=== PATIENT | female | born 1935 | race Caucasian/White ===

== ENCOUNTER → 2018-12-02 00:38 | Outpatient (CLI) | payer MEDICARE, SELFPAY ==
[2018-12-02 15:16] LABS: CREATININE 0.81 mg/dL (0.55-1.02)
--- NOTE | 2018-12-02 15:37 | DI.CT_ITS ---
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 Note is made of an incompletely imaged, 2 cm. in diameter mass of the upper right lung, this probably lies in the superior segment of the right lower lobe. No gross superior mediastinal adenopathy. No cervical mass or adenopathy. No gross erosion or destruction of the mandible or maxilla. Visualized brain is unremarkable. Orbital structures appear intact. The salivary glands are unremarkable. Tracheal laryngeal structures appear intact. 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 Left internal carotid artery is of normal diameter. Vertebrobasilar circulation appears intact as visualized. CONCLUSION: 1. No gross mandibular mass or invasion or erosive process. 2. Incidental 19 mm. in diameter right lung lesion, incompletely imaged. Chest CT requested to complete evaluation of this lesion and assess for additional lesions. 3. 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
[2018-12-02] MEDS: Omnipaque 350 MG/ML 100 ML BTL IJ (15:50)
[2018-12-02] MEDS: Normal Saline Flush 10 ML SYR IVP (15:51)
== END ==
PROVIDERS: Radiology Diagnostic Ultrasound; PCP Nurse Practitioner; Visit Provider Oral & Maxillofacial Surgery
DX: R91.1 Solitary pulmonary nodule (principal); I65.21 Occlusion and stenosis of right carotid artery; Z85.818 Personal history of malignant neoplasm of other sites of lip, oral cavity, and pharynx; Z13.89 Encounter for screening for other disorder
CPT/HCPCS: 70491; 82565; J3490

== ENCOUNTER 2018-12-25 02:00 | Outpatient (CLI) | payer MEDICARE, SELFPAY ==
--- NOTE | 2018-12-25 13:02 | DI.RAD_ITS ---
SYMPTOM/DIAGNOSIS: RLL PULMONARY NODULE, R91.1 PA AND LATERAL CHEST: Comparison is made with CT scan of the neck of 12/02/18. Comparison CT scan of the chest is 08/03/13. In comparison with the lateral steel rule die maker from 08/03/13, there is again seen a round soft tissue nodule projected in the region of the superior segment of the right lower lobe. It is unchanged in size compared to the steel rule die maker from 08/03/13. The lungs are otherwise clear. Heart size and pulmonary vasculature are within normal limits. No effusions or pneumothoraces are identified. There are degenerative changes seen in the spine. IMPRESSION: Stable right lower lobe pulmonary nodule. Per the report from the CT scan of the chest from 08/03/13, the pulmonary nodule had been stable since 06/28/11. Its continued stability suggests benign lesion. No acute pulmonary process.
== END 2018-12-25 02:20 ==
PROVIDERS: PCP Nurse Practitioner; Visit Provider Nurse Practitioner
DX: R91.1 Solitary pulmonary nodule (principal)
CPT/HCPCS: 71046

== ENCOUNTER 2019-01-15 07:47 | Outpatient (CLI) | payer MEDICARE, SELFPAY ==
[2019-01-15 08:37] LABS: HCT 42.2 % (36.0-46.0); HGB 14.2 g/dL (12.0-15.5); Mean Corp. HGB Concentration 33.6 g/dL (32.0-36.0); Mean Corpuscular Hemoglobin 32.2 pg (27.0-33.0); Mean Corpuscular Volume 95.7 fL (80-95); Platelet Count 243 x1000/uL (130-400); RBC 4.41 m/cumm (4.00-5.20); RBC Distribution Width 13.4 % (11.7-14.6); White Blood Cell Count 5.58 k/cumm (4.4-10.8)
[2019-01-15 09:46] LABS: ALT 21 U/L (12-78); AST 23 U/L (15-37); Albumin 3.8 g/dL (3.4-5.0); Alkaline Phosphatase 86 U/L (46-116); Anion Gap 7.5 mmol/L (3-11); BUN 18 mg/dL (7-18); Bilirubin, Total 0.4 mg/dL (0.2-1.0); CO2 32.5 mmol/L (21.0-32.0); CREATININE 0.76 mg/dL (0.55-1.02); Calcium 9.4 mg/dL (8.5-10.1); Calculated LDL 88 mg/dL; Chloride 104 mmol/L (98-107); Cholesterol 168 mg/dL (50-200); Glucose 106 mg/dL (70-100); HDL Cholesterol 40 mg/dL (40-60); Potassium 4.3 mmol/L (3.5-5.1); Sodium 144 mmol/L (136-145); Total Protein 7.1 g/dL (6.4-8.2); Triglyceride 203 mg/dL (30-150)
== END 2019-01-15 08:07 ==
PROVIDERS: PCP Nurse Practitioner; Visit Provider Nurse Practitioner
DX: E78.5 Hyperlipidemia, unspecified (principal); I10 Essential (primary) hypertension
CPT/HCPCS: 36415; 80053; 80061; 83721; 85027

== ENCOUNTER 2019-05-05 12:00 | Outpatient (REF) | payer MEDICARE, SELFPAY | END 2019-05-05 12:20 | LOC: LBO 12:00 | PROVIDERS: PCP Nurse Practitioner; Visit Provider Nurse Practitioner | DX: R35.0 Frequency of micturition (principal); R10.9 Unspecified abdominal pain | CPT/HCPCS: 87086 ==

== ENCOUNTER 2019-06-26 12:13 | Emergency (ER) | payer MEDICARE, SELFPAY ==
[2019-06-26 12:19] VITALS: BP 169/57; PULSE 78; RESP 14; TEMP 36.2; O2SAT 100
--- NOTE | 2019-06-26 12:56 | W.ED.GENAD ---
Discharge Plan Disposition Patient Disposition: HOME Condition: Good Discharge Details Chief Complaint: Orthopedic Clinical Impression: Acute knee pain Primary Care Provider: Ilene Torres ED Provider: Maria Antonia Smith Home Meds and New Rx's Prescriptions: Discontinued ibuprofen 200 mg Tablet 400 mg PO Q6H PRNRF: 0 No Action aspirin [Aspirin Low-Strength] 81 MG tablet,chewable 81 mg PO DAILY Qty: 90 RF: 4 omeprazole 20 MG capsule,delayed release(DR/EC) 20 mg PO DAILY Qty: 90 RF: 3 pravastatin 20 mg tablet 20 mg PO DAILY Qty: 90 RF: 3 hydrochlorothiazide 12.5 mg capsule 12.5 mg PO DAILY Qty: 90 RF: 3 Discharge Instructions Instructions: Knee Pain (ED) Additional Instructions: Rest. Activities as tolerated. Elevate injury to prevent swelling. Ice to the area of discomfort for 15 min. 3-5 times daily. Tylenol every 6 hours for soreness if needed over the counter for comfort. Followup with orthopedic doctor as discussed if not improving in one week. Someone from radiology should call you to schedule your Ultrasound. Return to the ER fridayfor Ultrasound as discussed. Return for any worsening or concerns sooner if needed. Referrals: Hector Hudson MD [ [facility] STAFF PHYSICIAN] - Medical Decision Making This is a very pleasant 83-year-old patient who presents to the emergency room for right knee pain for the last 3 days. Patient denies any specific injury or trauma. Patient reports knee pain is somewhat improved compared to yesterday after taking ibuprofen however now experiencing calf tightness. Patient reports a history of knee effusion for which she has seen Dr. Hudson in the past of orthopedics who removed fluid from her right knee. On exam patient has mild knee effusion without associated signs of infection. Patient does have range of motion which is intact with associated knee pain with flexion. On examination of patient's knee she has primarily lateral joint line tenderness and experiences pain more significantly in the lateral aspect of the joint with valgus and varus stress. Patient does have notable right calf swelling compared to the left leg. Distal neurovascularly intact. Pulses are intact and sensation is intact. X-ray ordered of knee as well as ultrasound. Ultrasound is unavailable today. X-ray reveals [id number] degenerative changes in the lateral aspect of the joint compartment. Patient has no associated fracture today. Discussed ultrasound being unavailable at this time. Ordered outpatient imaging for Friday. Patient was offered anticoagulation medication for potential for DVT however at this time patient's preference is to decline prophylactic anticoagulation and use aspirin by mouth and have outpatient imaging. Alarming signs and symptoms were discussed. Although DVT is within the differential diagnosis given patient's arthritic findings and her exam it is possible that she has ruptured a Mckenna's cyst and the calf pain and fullness she is experiencing is related to ruptured cystic fluid. No sign of infection or compartment syndrome in the calf at this time. The patient was stable and requested discharge. Prior to discharge, my usual and customary return precautions were reviewed with the patient - this included follow-up instructions and reasons to return to the Emergency Department if conditions worsens, does not improve as expected, or other new concerns arise. HPI General Date/Time Provider Initiated Documentation: 06/26/19 12:42. HPI Narrative: Is an 83-year-old patient who is quite pleasant presenting for complaints of right knee pain for the last 3 days. Patient reports she does have a history of knee pain in the past for which she seen Dr. Hudson and had fluid removed from her knee. Patient denies any recent injury or trauma to her knee but reports in the last 3 days increase in knee pain with associated limping gait. Patient reports pain yesterday was so severe she was having difficulty ambulating was using crutches. Patient reports the pain is somewhat improved today however she reports increasing pain and pressure in the right calf. Patient denies fever, chills, nausea, vomiting. No numbness or tingling of the lower leg. No difficulty breathing shortness of breath or wheezing. No ill feeling or malaise. Related Data Home Medications Medication Instructions Recorded Confirmed aspirin [Aspirin Low-Strength] 81 mg PO DAILY #90 tab.chew 11/04/12 06/26/19 omeprazole 20 mg PO DAILY #90 tab-cap 01/22/18 06/26/19 pravastatin 20 mg tablet 20 mg PO DAILY #90 tab-cap 11/25/18 06/26/19 hydrochlorothiazide 12.5 mg capsule 12.5 mg PO DAILY #90 tab-cap 02/02/19 06/26/19 Previous Rx's Medication Instructions Recorded omeprazole 20 mg PO DAILY #90 tab-cap 01/22/18 pravastatin 20 mg tablet 20 mg PO DAILY #90 tab-cap 11/25/18 hydrochlorothiazide 12.5 mg capsule 12.5 mg PO DAILY #90 tab-cap 02/02/19 Allergies Allergy/AdvReac Type Severity Reaction Status Date / Time scopolamine AdvReac Intermediate Visual Verified 06/26/19 12:22 Disturbances General Stated Complaint: Orthopedic DION: 4 Review of Systems All systems reviewed & are unremarkable except as noted in HPI and below Constitutional Constitutional: Denies chills, Denies fatigue, Denies fever(s), Denies headache(s) and Denies malaise ENT Ears, Nose, Mouth, and Throat: Denies headache(s) Musculoskeletal Musculoskeletal: Reports abnormal gait, Denies back pain, Reports joint swelling, Denies numbness, Reports stiffness and Denies tingling Neurologic Neurologic: Reports abnormal gait, Denies headache(s), Denies numbness and Denies tingling Endocrine Endocrine: Denies fatigue [facility] Surgical History (Updated 02/19/19 @ 14:09 by Sarah Garcia RN) Extraction of cataract (03/19/16) Right eye Dr. Carlton Diaz eye Extraction of cataract (04/09/16) Right eye Dr. Carlton Diaz eye H/O oral surgery (Acute 01/27/19) Mandibulectomy, Partial composit resection, glossectomy Social History Smoking/Tobacco Use Status: Former Tobacco Use Alcohol Intake: never Drug use: Never Substance use type: does not use Do you feel safe at home: Yes Do you feel safe in your relationship?: Yes Exam Narrative Exam Narrative: CONST: Healthy appearing patient, in no acute distress. Well hydrated. Alert and alert. etractions. MUSCULOSKELETAL: Straight leg raise intact. Internal/external rotation of the hip without difficulty. Patient is able to flex and extend knee with pain with flexion. Patient reports lateral joint line tenderness. Mild effusion present. Posterior swelling present consistent with Mckenna's cyst. Right calf fullness compared to the left leg. Calf pressure with palpation but no significant pain with calf squeeze or flexion of the foot. Pulses present in the foot. Full range of motion of foot and ankle. Sensation intact distally. SKIN: Normal. Dry. No rashes. NEURO: Alert and awake. Speech clear. PSYCH: Normal affect. Cooperative. Course Vital Signs Vital signs: Vital Signs Temperature 36.2 C L 06/26/19 12:19 Pulse 78 06/26/19 12:19 Respiratory Rate 14 06/26/19 12:19 Blood Pressure 169/57 H 06/26/19 12:19 Pulse Oximetry 100 06/26/19 12:19 Temperature 36.2 C L 06/26/19 12:19 Temperature Source Temporal Artery Scan 06/26/19 12:19 Pulse 78 06/26/19 12:19 Respiratory Rate 14 06/26/19 12:19 Respiratory Effort Non-Labored 06/26/19 12:21 Blood Pressure 169/57 H 06/26/19 12:19 Blood Pressure Position Sitting 06/26/19 12:19 Pulse Oximetry 100 06/26/19 12:19 Oxygen Delivery Method Room Air 06/26/19 12:19 Oxygen Flow Rate 0 06/26/19 12:19 Pain Level 8 06/26/19 12:19
--- NOTE | 2019-06-26 13:10 | DI.RAD_ITS ---
EXAM: XR KNEE RT 4V AP,LAT,MARTA,PAT INDICATION: pain. COMPARISON: LEFT KNEE LIMITED 1 OR 2 VIEWS from 01/12/2014 TECHNIQUE: 2D digital imaging was performed. FINDINGS: No fracture is identified. There is a small joint effusion. There are advanced degenerative changes of the lateral femoral tibial joint and [id number] degenerative changes elsewhere. IMPRESSION: No acute abnormality. 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
--- NOTE | 2019-06-26 13:50 | DI.VRAD_ITS ---
PROCEDURE INFORMATION: Exam: XR Left Knee Exam date and time: 06/26/2019 12:54 PM Age: 83 years old Clinical history: Pain; Knee; Right TECHNIQUE: Imaging protocol: XR Left knee. Views: 4 or more views. COMPARISON: No relevant prior studies available. FINDINGS: Bones/joints: Godo-ye-rtrf in the lateral compartment Joint space narrowing in the patellofemoral joint. Osteophyte formation in the lateral compartment and patellofemoral compartment. Findings consistent degenerative changes. There is no evidence of acute fracture.There is no evidence of malalignment or dislocation. Soft tissues: Normal. IMPRESSION: There is no evidence of acute fracture.There is no evidence of malalignment or dislocation. Dictated and Authenticated by: Agnieszka Ritchie MD. Ordering:JACKIE Em MD
== END 2019-06-26 14:30 | disposition home or self-care (01) ==
PROVIDERS: Emergency Provider Physician Assistant; PCP Nurse Practitioner
DX: M25.561 Pain in right knee (principal)
CPT/HCPCS: 99283; 73564

== ENCOUNTER 2019-06-28 12:00 | Outpatient (CLI) | payer MEDICARE, SELFPAY ==
--- NOTE | 2019-06-28 12:17 | DI.US_ITS ---
EXAM: US LOWER EXTREMITY VENOUS RT CLINICAL HISTORY: KNEE AND CALF PAIN AND SWELLING ON RT, R22.41, ? DVT TECHNIQUE: Ultrasound performed using standard protocol. COMPARISON: XR KNEE RT 4V AP,LAT,MARTA,PAT from 06/26/2019 FINDINGS: Femoral and popliteal veins and visualized calf veins are freely compressible. No thrombus is visibl e. The Doppler venous waveform augments normally. There is some soft tissue fluid seen at the later al aspect of the level of the knee. No superficial venous thrombosis is seen. There is a reactive r ight groin lymph node without suspicious features. IMPRESSION: No evidence of deep venous thrombosis or superficial thrombophlebitis.
== END 2019-06-28 12:20 ==
PROVIDERS: PCP Nurse Practitioner; Visit Provider Physician Assistant
DX: M25.561 Pain in right knee (principal); M79.661 Pain in right lower leg; R22.41 Localized swelling, mass and lump, right lower limb
CPT/HCPCS: 93971

== ENCOUNTER 2019-06-28 12:57 | Emergency (ER) | payer MEDICARE, SELFPAY ==
[2019-06-28 13:05] VITALS: BP 180/71; PULSE 71; RESP 16; TEMP 36.5; O2SAT 99
--- NOTE | 2019-06-28 15:02 | ED.GENADUL_ITS ---
Discharge Plan Disposition Patient Disposition: HOME Condition: Stable Discharge Details Chief Complaint: Recheck Clinical Impression: Acute leg pain Primary Care Provider: Ilene Torres ED Provider: Ivan Arreaga Home Meds and New Rx's Prescriptions: No Action aspirin [Aspirin Low-Strength] 81 MG tablet,chewable 81 mg PO DAILY Qty: 90 RF: 4 omeprazole 20 MG capsule,delayed release(DR/EC) 20 mg PO DAILY Qty: 90 RF: 3 pravastatin 20 mg tablet 20 mg PO DAILY Qty: 90 RF: 3 hydrochlorothiazide 12.5 mg capsule 12.5 mg PO DAILY Qty: 90 RF: 3 Discharge Instructions Instructions: Leg Pain (ED) Additional Instructions: 1. Drink plenty of fluids. 2. Continue all medications as prescribed. 3. Acetaminophen 1000mg every 4 hours (up to 5 time a day) and/or ibuprofen 600mg every 6 hours as needed for fever or pain. 4. Ice knee as needed. Return to the Emergency Department (ED) if your condition worsens, does not improve as expected, or for ANY other concerns. Specifically, return if you have new or uncontrolled pain, worsening fever, difficulty breathing, vomiting, or are unable to drink fluids. Medical Decision Making 83-year-old returns for review of imaging performed 2 days ago for right knee pain and associated knee swelling. Clinically improved since her previous evaluation with decreased knee swelling and pain. Exam today negative for evidence of significant leg swelling, erythema, induration, or vascular compromise. She has no significant popliteal fossa or medial thigh tenderness. DVT study reviewed by myself and radiology and negative for evidence of acute DVT. Discussed findings with patient was discharged home with a plan for OTC analgesia and outpatient follow-up. Of note, patient has had similar knee pain previously which has been treated with arthrocentesis for a joint effusion. Imaging Data Radiologic Study: Imaging: Ultrasound (Right lower extremity DVT study) My impression: No evidence of acute thrombus. Radiologist's impression: Same HPI 83-year-old woman with past medical history which includes 06/26/2019 for acute onset of right knee pain and swelling. Evaluation included knee x-ray diagnostic for likely degenerative disease. At that time, an outpatient DVT duplex study was ordered. Patient returns today for formal image review and disposition dependent on findings. Of note, she has been clinically improved since her ED evaluation with reduced knee swelling and pain responsive to OTC analgesia. She denies significant generalized lower extremity swelling or pain. She has had no leg discoloration or exanthem. She denies any dyspnea, palpitations, or chest pain. General Date/Time Provider Initiated Documentation: 06/28/19 14:05 . Related Data Home Medications Medication Instructions Recorded Confirmed aspirin [Aspirin Low-Strength] 81 mg PO DAILY #90 tab.chew 11/04/12 06/28/19 omeprazole 20 mg PO DAILY #90 tab-cap 01/22/18 06/28/19 pravastatin 20 mg tablet 20 mg PO DAILY #90 tab-cap 11/25/18 06/28/19 hydrochlorothiazide 12.5 mg capsule 12.5 mg PO DAILY #90 tab-cap 02/02/19 06/28/19 Previous Rx's Medication Instructions Recorded omeprazole 20 mg PO DAILY #90 tab-cap 01/22/18 pravastatin 20 mg tablet 20 mg PO DAILY #90 tab-cap 11/25/18 hydrochlorothiazide 12.5 mg capsule 12.5 mg PO DAILY #90 tab-cap 02/02/19 Allergies Allergy/AdvReac Type Severity Reaction Status Date / Time scopolamine AdvReac Intermediate Visual Verified 06/28/19 13:07 Disturbances General Stated Complaint: Recheck DION: 5 Review of Systems All systems reviewed & are unremarkable except as noted in HPI and below PFSH Surgical History Extraction of cataract (03/19/16) Right eye Dr. Carlton Diaz eye Extraction of cataract (04/09/16) Right eye Dr. Carlton Diaz eye H/O oral surgery (Acute 01/27/19) Mandibulectomy, Partial composit resection, glossectomy Social History Smoking/Tobacco Use Status: Former Tobacco Use Alcohol Intake: never Drug use: Never Substance use type: does not use Do you feel safe at home: Yes Do you feel safe in your relationship?: Yes Exam Narrative Exam Narrative: Nursing note and vital signs have been reviewed and noted. GENERAL: alert, active, no acute distress, well -hydrated, well-nourished HEENT: atraumatic/normocephalic, PERRLA, EOMI, conjunctiva clear, external ears/canals normal, nasal mucosa normal NECK: supple, full range of motion CARDIOVASCULAR: nl pulses, no edema PULMONARY: nl effort, no audible wheezing or stridor ABDOMEN: non-distended EXTREMITY: normal muscle tone, all joints with FROM, no deformity; minimal right knee joint effusion with no erythema, induration, or ecchymosis. No calf tenderness or proximal leg tenderness in the distribution of the common femoral femoral vein. Normal peripheral neurovascular exam. NUERO: normal mentation, moving all extremities, normal stance and gait, PSYCH: alert and oriented SKIN: no new rashes or lesions Course Vital Signs Vital signs: Vital Signs Temperature 97.7 F 06/28/19 13:05 Pulse 71 06/28/19 13:05 Respiratory Rate 16 06/28/19 13:05 Blood Pressure 180/71 H 06/28/19 13:05 Pulse Oximetry 99 06/28/19 13:05 Temperature 97.7 F 06/28/19 13:05 Temperature Source Skin 06/28/19 13:05 Pulse 71 06/28/19 13:05 Respiratory Rate 16 06/28/19 13:05 Respiratory Effort Non-Labored 06/28/19 13:05 Blood Pressure 180/71 H 06/28/19 13:05 Blood Pressure Position Sitting 06/28/19 13:05 Pulse Oximetry 99 06/28/19 13:05 Oxygen Delivery Method Room Air 06/28/19 13:05 Oxygen Flow Rate 0 06/28/19 13:05 Pain Level 0 06/28/19 14:14
== END 2019-06-28 14:15 | disposition home or self-care (01) ==
PROVIDERS: Emergency Provider Emergency Medicine; PCP Nurse Practitioner
DX: M79.604 Pain in right leg (principal); Z71.2 Person consulting for explanation of examination or test findings
CPT/HCPCS: 99282; 93971

== ENCOUNTER → 2019-07-30 09:26 | Outpatient (BNVA) | payer MEDICARE, SELFPAY | PROVIDERS: PCP Nurse Practitioner; Referring Provider Nurse Practitioner; Visit Provider Student in an Organized Health Care Education/Training Program | DX: M25.561 Pain in right knee (principal) | CPT/HCPCS: 99213 ==

== ENCOUNTER 2020-06-07 10:28 | Outpatient (REF) | payer MEDICARE, SELFPAY ==
[2020-06-07 19:39] LABS: HCT 44.8 % (36.0-46.0); MCH 31.6 pg (27.0-33.0); MCHC 33.5 % (32.0-36.0); MCV 94.5 fL (80-95); MPV 9.4 fL (8.0-11.0); Platelet Count 226 10^3/uL (130-400); RBC 4.74 10^6/uL (3.93-5.22); RDW-SD 45.6 fL; WBC 6.06 10^3/uL (4.4-10.8)
[2020-06-07 20:03] LABS: ALT 20 U/L (14-59); AST 18 U/L (15-37); Albumin 4.1 g/dL (3.4-5.0); Alkaline Phosphatase 79 U/L (46-116); Anion Gap 9.1 mmol/L (3-11); BUN 17 mg/dL (7-18); Bilirubin, Total 0.5 mg/dL (0.2-1.0); CO2 29.9 mmol/L (21.0-32.0); CREATININE 0.81 mg/dL (0.55-1.02); Calcium 9.2 mg/dL (8.5-10.1); Calculated LDL 96 mg/dL (<100); Chloride 103 mmol/L (98-107); Cholesterol 168 mg/dL (<200); Glucose 108 mg/dL (74-106); HDL Cholesterol 52 mg/dL (40-60); Potassium 4.4 mmol/L (3.5-5.1); Sodium 142 mmol/L (136-145); Total Protein 7.1 g/dL (6.4-8.2); Triglyceride 104 mg/dL (<150)
== END 2020-06-07 10:48 ==
LOC: LBN 10:28
PROVIDERS: PCP Nurse Practitioner; Visit Provider Nurse Practitioner
DX: I63.9 Cerebral infarction, unspecified (principal); I10 Essential (primary) hypertension; E78.5 Hyperlipidemia, unspecified
CPT/HCPCS: 80053; 80061; 85027

== ENCOUNTER 2020-07-03 10:30 | Outpatient (REF) | payer MEDICARE, SELFPAY | END 2020-07-03 10:50 | LOC: LBN 10:30 | PROVIDERS: PCP Nurse Practitioner; Visit Provider Nurse Practitioner | DX: R10.9 Unspecified abdominal pain (principal); R82.998 Other abnormal findings in urine | CPT/HCPCS: 87086 ==

== ENCOUNTER 2021-05-16 04:36 | Outpatient (CLI) | payer MEDICARE, SELFPAY ==
[2021-05-16 09:18] LABS: Hemoglobin A1C 5.7 % (<5.7)
[2021-05-16 09:54] LABS: ALT 20 U/L (14-59); AST 16 U/L (15-37); Albumin 3.7 g/dL (3.4-5.0); Alkaline Phosphatase 85 U/L (46-116); Anion Gap 6.2 mmol/L (3-11); BUN 16 mg/dL (7-18); Bilirubin, Total 0.8 mg/dL (0.2-1.0); CO2 33.8 mmol/L (21.0-32.0); CREATININE 0.8 mg/dL (0.55-1.02); Calcium 8.8 mg/dL (8.5-10.1); Calculated LDL 99 mg/dL (<100); Chloride 106 mmol/L (98-107); Cholesterol 167 mg/dL (<200); Glucose 105 mg/dL (74-106); HDL Cholesterol 53 mg/dL (40-60); Potassium 4.6 mmol/L (3.5-5.1); Sodium 146 mmol/L (136-145); Total Protein 6.7 g/dL (6.4-8.2); Triglyceride 76 mg/dL (<150)
== END 2021-05-16 04:37 | disposition home or self-care (01) ==
LOC: LBO 04:36
PROVIDERS: PCP Nurse Practitioner; Visit Provider Nurse Practitioner
DX: I10 Essential (primary) hypertension (principal); E78.5 Hyperlipidemia, unspecified; R73.01 Impaired fasting glucose
CPT/HCPCS: 36415; 80053; 80061; 83036

== ENCOUNTER 2021-07-11 09:33 | Outpatient (REF) | payer MEDICARE, SELFPAY | END 2021-07-11 09:34 | disposition home or self-care (01) | LOC: LBN 09:33 | PROVIDERS: PCP Nurse Practitioner; Visit Provider Nurse Practitioner | DX: M54.9 Dorsalgia, unspecified (principal) | CPT/HCPCS: 87086 ==

== ENCOUNTER 2021-10-01 08:59 | Outpatient (REF) | payer MEDICARE, SELFPAY | END 2021-10-01 09:00 | disposition home or self-care (01) | LOC: LBN 08:59 | PROVIDERS: PCP Nurse Practitioner; Visit Provider Nurse Practitioner | DX: R30.0 Dysuria (principal) | CPT/HCPCS: 87086 ==

== ENCOUNTER 2022-04-29 11:10 | Outpatient (CLI) | payer MEDICARE, SELFPAY ==
--- NOTE | 2022-04-29 11:00 | DI.RAD_ITS ---
Exam(s) XR LUMBAR SPINE COMPLETE EXAM: XR LUMBAR SPINE COMPLETE CLINICAL HISTORY: SCIATICA, LOW BACK PAIN-M54.50. TECHNIQUE: 2D digital imaging was performed. Five views. COMPARISON: No exams were available for comparison FINDINGS: BONES: No fracture or destructive lesion. Vertebral body heights are maintained. Severe facet hypert rophy, greatest at L4-5 and L5-S1.. There is slight spondylolisthesis at these levels. No spondylol ysis. DISKS: Moderate to severe narrowing of the L5-S1 disc space. The remaining intervertebral disc space s are maintained. ALIGNMENT: Lumbar spinal alignment is within normal limits. SOFT TISSUE: Vascular calcifications. IMPRESSION: Severe facet joint degenerative changes greatest at L4-5 and L5-S1 causing slight spondylo listhesis. Moderate to severe disc space narrowing at L5-S1. DATA REPOSITORY: RADIATION DOSE DELIVERED:
== END 2022-04-29 11:30 ==
LOC: DI 11:17
PROVIDERS: PCP Nurse Practitioner; Visit Provider Nurse Practitioner
DX: M54.59 Other low back pain (principal); M51.17 Intervertebral disc disorders with radiculopathy, lumbosacral region; M43.17 Spondylolisthesis, lumbosacral region
CPT/HCPCS: 72110

== ENCOUNTER 2022-04-29 11:43 | Outpatient (REF) | payer MEDICARE, SELFPAY | END 2022-04-29 11:44 | disposition home or self-care (01) | LOC: LBN 11:43 | PROVIDERS: PCP Nurse Practitioner; Visit Provider Nurse Practitioner | DX: R10.31 Right lower quadrant pain (principal); M54.59 Other low back pain | CPT/HCPCS: 87086 ==

== ENCOUNTER 2022-05-21 08:04 | Outpatient (CLI) | payer MEDICARE, SELFPAY ==
[2022-05-21 08:30] LABS: HGB 14.4 g/dL (11.2-15.7); MCH 32.7 pg (27.0-33.0); MCHC 33.5 % (32.0-36.0); MCV 98 fL (80-95); MPV 8.8 fL (8.0-11.0); Platelet Count 223 10^3/uL (130-400); RDW 14.3 % (11.7-14.6); RDW-SD 51.8 fL; WBC 5.62 10^3/uL (4.4-10.8)
[2022-05-21 08:40] LABS: Hemoglobin A1C 5.5 % (<5.7)
[2022-05-21 08:54] LABS: ALT 17 U/L (14-59); AST 19 U/L (15-37); Alkaline Phosphatase 88 U/L (46-116); Anion Gap 5.3 mmol/L (3-11); BUN 18 mg/dL (7-18); Bilirubin, Total 1.1 mg/dL (0.2-1.0); CO2 32.7 mmol/L (21.0-32.0); CREATININE 0.8 mg/dL (0.55-1.02); Calcium 9.2 mg/dL (8.5-10.1); Calculated LDL 87 mg/dL (<100); Chloride 104 mmol/L (98-107); Cholesterol 169 mg/dL (<200); Estimated GFR 72.61 (mL/min/1.73m2); Glucose 97 mg/dL (74-106); HDL Cholesterol 55 mg/dL (40-60); Potassium 3.9 mmol/L (3.5-5.1); Sodium 142 mmol/L (136-145); Total Protein 7.6 g/dL (6.4-8.2); Triglyceride 137 mg/dL (<150)
== END 2022-05-21 08:05 | disposition home or self-care (01) ==
LOC: LBO 08:05
PROVIDERS: PCP Nurse Practitioner; Visit Provider Nurse Practitioner
DX: E78.5 Hyperlipidemia, unspecified (principal); I10 Essential (primary) hypertension; K21.00 Gastro-esophageal reflux disease with esophagitis, without bleeding; R73.01 Impaired fasting glucose; C02.9 Malignant neoplasm of tongue, unspecified
CPT/HCPCS: 36415; 80053; 80061; 85027; 83036

== ENCOUNTER 2022-08-20 10:57 | Outpatient (CLI) | payer MEDICARE, SELFPAY ==
--- NOTE | 2022-08-20 10:45 | RT.EKG_ITS ---
APPROVED REPORT Exam: Resting ECG Reason for Exam: prior to surgery Patient Location: O HR:75 bpm ECG Measurements Heart Rate 75 AXIS NJ 190 P 45 QRSd 84 QRS 0 QT 390 T 34 QTc 436 Conclusion Sinus rhythm...normal P axis, V-rate 50- 99 Normal Electrocardiogram
== END 2022-08-20 10:58 | disposition home or self-care (01) ==
LOC: DI.KIM 10:58
PROVIDERS: PCP Nurse Practitioner; Visit Provider Nurse Practitioner
DX: I10 Essential (primary) hypertension (principal); E78.5 Hyperlipidemia, unspecified; Z01.818 Encounter for other preprocedural examination
CPT/HCPCS: 93010

== ENCOUNTER 2023-07-01 10:41 | Outpatient (REF) | payer MEDICARE, SELFPAY ==
[2023-07-01 16:16] LABS: HCT 34.2 % (36.0-46.0); HGB 11.9 g/dL (11.2-15.7); MCH 34.5 pg (27.0-33.0); MCHC 34.8 % (32.0-36.0); MCV 99 fL (80-95); MPV 9.8 fL (8.0-11.0); RBC 3.45 10^6/uL (3.93-5.22); RDW 14.4 % (11.7-14.6); RDW-SD 51.6 fL; WBC 2.12 10^3/uL (4.4-10.8)
[2023-07-01 16:28] LABS: ALT 15 U/L (14-59); AST 16 U/L (15-37); Albumin 3.4 g/dL (3.4-5.0); Alkaline Phosphatase 56 U/L (46-116); Anion Gap 6.4 mmol/L (3-11); BUN 15 mg/dL (7-18); Bilirubin, Total 0.5 mg/dL (0.2-1.0); CO2 32.6 mmol/L (21.0-32.0); CREATININE 0.8 mg/dL (0.55-1.02); Calcium 9.5 mg/dL (8.5-10.1); Chloride 100 mmol/L (98-107); Estimated GFR 72.16 (mL/min/1.73m2); Glucose 131 mg/dL (74-106); Potassium 3.1 mmol/L (3.5-5.1); Sodium 139 mmol/L (136-145); Total Protein 6.9 g/dL (6.4-8.2)
[2023-07-01 16:31] LABS: Platelet Count 88 10^3/uL (130-400)
[2023-07-01 16:34] LABS: Absolute Eosinophil Count 0.04 10^3/uL (0.0-0.7); Absolute Lymphocyte Count 0.51 10^3/uL (1.2-3.4); Absolute Monocyte Count 0.19 10^3/uL (0.1-0.8); Absolute Neutrophil Count 1.38 10^3/uL (1.2-6.7); Diff Comment Diff Reviewed; RBC Morphology Normal
== END 2023-07-01 10:42 | disposition home or self-care (01) ==
LOC: LBN 10:41
PROVIDERS: PCP Nurse Practitioner; Visit Provider Nurse Practitioner
DX: R63.4 Abnormal weight loss (principal); C10.9 Malignant neoplasm of oropharynx, unspecified; I10 Essential (primary) hypertension
CPT/HCPCS: 80053; 85025

== ENCOUNTER 2023-07-08 13:59 | Outpatient (REF) | payer MEDICARE, SELFPAY ==
[2023-07-08 16:16] LABS: Absolute Basophil Count 0.01 10^3/uL (0.0-0.2); Absolute Eosinophil Count 0.02 10^3/uL (0.0-0.7); Absolute Lymphocyte Count 0.43 10^3/uL (1.2-3.4); Absolute Monocyte Count 0.11 10^3/uL (0.1-0.8); Absolute Neutrophil Count 1.02 10^3/uL (1.2-6.7); Basophils % 0.6; Eosinophils % 1.3; HCT 42.4 % (36.0-46.0); HGB 14.3 g/dL (11.2-15.7); MCHC 33.7 % (32.0-36.0); MCV 101 fL (80-95); MPV 9.5 fL (8.0-11.0); Monocytes % 6.9; Neutrophils % 64.2; RDW 15.3 % (11.7-14.6); RDW-SD 56.3 fL
[2023-07-08 16:28] LABS: Anion Gap 8.2 mmol/L (3-11); BUN 13 mg/dL (7-18); CO2 27.8 mmol/L (21.0-32.0); CREATININE 0.6 mg/dL (0.55-1.02); Calcium 9.3 mg/dL (8.5-10.1); Chloride 104 mmol/L (98-107); Estimated GFR 87.91 (mL/min/1.73m2); Glucose 122 mg/dL (74-106); Potassium 4.7 mmol/L (3.5-5.1); Sodium 140 mmol/L (136-145)
[2023-07-08 16:35] LABS: WBC 1.59 10^3/uL (4.4-10.8)
[2023-07-08 16:36] LABS: Platelet Count 62 10^3/uL (130-400)
[2023-07-08 16:39] LABS: RBC Morphology Normal
[2023-07-08 16:40] LABS: Diff Comment Agrees w/ Instrument
== END 2023-07-08 14:00 | disposition home or self-care (01) ==
LOC: LBN 13:59
PROVIDERS: PCP Nurse Practitioner; Visit Provider Nurse Practitioner
DX: D61.818 Other pancytopenia (principal); R79.89 Other specified abnormal findings of blood chemistry
CPT/HCPCS: 80048; 85025

== ENCOUNTER 2023-07-16 11:42 | Outpatient (REF) | payer MEDICARE, SELFPAY ==
[2023-07-16 15:27] LABS: HCT 32.1 % (36.0-46.0); HGB 10.9 g/dL (11.2-15.7); MCH 34.7 pg (27.0-33.0); MCV 102 fL (80-95); MPV 9.4 fL (8.0-11.0); RBC 3.14 10^6/uL (3.93-5.22); RDW 15.1 % (11.7-14.6); RDW-SD 56.3 fL
[2023-07-16 15:37] LABS: WBC 1.57 10^3/uL (4.4-10.8)
[2023-07-16 15:38] LABS: Platelet Count 80 10^3/uL (130-400)
[2023-07-16 15:48] LABS: Absolute Eosinophil Count 0.02 10^3/uL (0.0-0.7); Absolute Lymphocyte Count 0.46 10^3/uL (1.2-3.4); Absolute Monocyte Count 0.16 10^3/uL (0.1-0.8); Absolute Neutrophil Count 0.94 10^3/uL (1.2-6.7); Atypical Lymphocytes % 2
[2023-07-16 15:50] LABS: Diff Comment Diff Reviewed; Hypochromasia 1+
== END 2023-07-16 11:43 | disposition home or self-care (01) ==
LOC: LBN 11:42
PROVIDERS: PCP Nurse Practitioner; Referring Provider Nurse Practitioner; Visit Provider Nurse Practitioner
DX: D72.819 Decreased white blood cell count, unspecified (principal)
CPT/HCPCS: 85025

== ENCOUNTER 2023-07-23 18:56 | Outpatient (CLI) | payer MEDICARE, SELFPAY ==
[2023-07-23 10:07] LABS: Absolute Eosinophil Count 0.04 10^3/uL (0.0-0.7); Absolute Monocyte Count 0.23 10^3/uL (0.1-0.8); Absolute Neutrophil Count 1.21 10^3/uL (1.2-6.7); Eosinophils % 1.8; HCT 33.8 % (36.0-46.0); HGB 11.5 g/dL (11.2-15.7); Lymphocytes % 32.1; MCH 34.3 pg (27.0-33.0); MCV 101 fL (80-95); MPV 9.5 fL (8.0-11.0); Monocytes % 10.6; Neutrophils % 55.5; RBC 3.35 10^6/uL (3.93-5.22); RDW 15.1 % (11.7-14.6); RDW-SD 55.9 fL; WBC 2.18 10^3/uL (4.4-10.8)
[2023-07-23 10:14] LABS: Diff Comment Diff Reviewed; Platelet Count 80 10^3/uL (130-400); RBC Morphology Normal
== END 2023-07-23 18:57 | disposition home or self-care (01) ==
LOC: LBO 18:56
PROVIDERS: PCP Nurse Practitioner; Visit Provider Internal Medicine Hematology & Oncology
DX: D61.818 Other pancytopenia (principal)
CPT/HCPCS: 36415; 85025

== ENCOUNTER 2023-09-17 07:53 | Outpatient (CLI) | payer MEDICARE, SELFPAY ==
[2023-09-17 08:14] LABS: Absolute Eosinophil Count 0.04 10^3/uL (0.0-0.7); Absolute Lymphocyte Count 0.59 10^3/uL (1.2-3.4); Absolute Monocyte Count 0.18 10^3/uL (0.1-0.8); Absolute Neutrophil Count 1.04 10^3/uL (1.2-6.7); Eosinophils % 2.2; HCT 27.2 % (36.0-46.0); HGB 9.4 g/dL (11.2-15.7); Lymphocytes % 31.9; MCH 36.3 pg (27.0-33.0); MCHC 34.6 % (32.0-36.0); MCV 105 fL (80-95); MPV 9.8 fL (8.0-11.0); Monocytes % 9.7; Neutrophils % 56.2; RBC 2.59 10^6/uL (3.93-5.22); RDW 14.8 % (11.7-14.6); RDW-SD 57.2 fL
[2023-09-17 08:20] LABS: WBC 1.85 10^3/uL (4.4-10.8)
[2023-09-17 08:25] LABS: Diff Comment Diff Reviewed; RBC Morphology Normal
[2023-09-17 08:26] LABS: Platelet Count 58 10^3/uL (130-400)
[2023-09-17 08:29] LABS: ALT 15 U/L (14-59); AST 17 U/L (15-37); Albumin 3.6 g/dL (3.4-5.0); Alkaline Phosphatase 65 U/L (46-116); Anion Gap 9.6 mmol/L (3-11); BUN 11 mg/dL (7-18); Bilirubin, Total 0.6 mg/dL (0.2-1.0); CO2 28.4 mmol/L (21.0-32.0); CREATININE 0.8 mg/dL (0.55-1.02); Calcium 9.4 mg/dL (8.5-10.1); Chloride 102 mmol/L (98-107); Estimated GFR 72.16 (mL/min/1.73m2); Glucose 111 mg/dL (74-106); Potassium 4.1 mmol/L (3.5-5.1); Sodium 140 mmol/L (136-145); Total Protein 6.9 g/dL (6.4-8.2)
== END 2023-09-17 07:54 | disposition home or self-care (01) ==
LOC: LBO 07:58
PROVIDERS: PCP Nurse Practitioner; Visit Provider Internal Medicine Hematology & Oncology
DX: D46.9 Myelodysplastic syndrome, unspecified (principal)
CPT/HCPCS: 36415; 80053; 86850; 86900; 86901; 85025

== ENCOUNTER → 2023-10-02 02:34 | Outpatient (CLI) | payer MEDICARE, SELFPAY ==
--- NOTE | 2023-10-02 | DI.CT_ITS ---
Exam(s) CT HEAD WO EXAM: CT HEAD WO CLINICAL HISTORY: TRAUMATIC SUBDURAL HEMATOMA,[id number],EVAL FOR CHANGE. TECHNIQUE: Imaging Protocol: Axial computed tomography images with coronal and sagittal reformatted images were created and reviewed COMPARISON: CT CT Carotids and [place] from 05/10/[address] neck w from 12/02/2018 FINDINGS: There are no skull fractures. There is no fluid in the visualized paranasal sinuses. Very subtle suggestion of small-thin remnant of subdural hematoma over the right convexity, almost im perceptible and not associated with subjacent effacement of cortical sulci nor shift of midline struc tures. There is an area of abnormal hypodensity in the right frontal lobe white matter, not associat ed with mass effect and possibly not acute. No other focal intracranial findings. 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 Subtle remnant of right subdural hematoma almost imperceptible at this time. There are no previous f or comparison. RADIATION DOSE DELIVERED: Total DLP DATA REPOSITORY: All CT scans at this facility are submitted to the National Radiology Data Registry (NRDR) Dose Index Registry (DIR) with the [employer] (A[employer]). RADIATION OPTIMIZATION: All CT scans at this facility use at least one of these dose optimization te chniques: automated exposure control; mA and/or kV adjustment per patient size (includes targeted exa ms where dose is matched to clinical indication); or iterative reconstruction.
== END ==
PROVIDERS: PCP Nurse Practitioner; Visit Provider Occupational Therapist
DX: S06.5X0D Traumatic subdural hemorrhage without loss of consciousness, subsequent encounter (principal); X58.XXXD Exposure to other specified factors, subsequent encounter
CPT/HCPCS: 70450

== ENCOUNTER 2023-10-06 05:07 | Outpatient (RCR) | payer MEDICARE, SELFPAY ==
[2023-09-22 08:26] LABS: Abs Immature Grans 0.01 10^3/uL (0.0-0.06); Absolute Eosinophil Count 0.02 10^3/uL (0.0-0.7); Absolute Lymphocyte Count 0.45 10^3/uL (1.2-3.4); Absolute Monocyte Count 0.15 10^3/uL (0.1-0.8); Absolute Neutrophil Count 1.15 10^3/uL (1.2-6.7); Eosinophils % 1.1; HCT 25.1 % (36.0-46.0); HGB 8.7 g/dL (11.2-15.7); Immature Grans % 0.6; Lymphocytes % 25.3; MCH 36.6 pg (27.0-33.0); MCHC 34.7 % (32.0-36.0); MCV 106 fL (80-95); MPV 10.2 fL (8.0-11.0); Monocytes % 8.4; Neutrophils % 64.6; RBC 2.38 10^6/uL (3.93-5.22); RDW 14.6 % (11.7-14.6)
[2023-09-22 08:51] LABS: Platelet Count 57 10^3/uL (130-400)
[2023-09-22 08:56] LABS: Diff Comment Diff Reviewed; WBC 1.78 10^3/uL (4.4-10.8)
[2023-09-22 08:57] LABS: Macrocytosis 1+; Polychromasia Present
[2023-09-29 08:41] LABS: Absolute Basophil Count 0.01 10^3/uL (0.0-0.2); Absolute Eosinophil Count 0.03 10^3/uL (0.0-0.7); Absolute Lymphocyte Count 0.55 10^3/uL (1.2-3.4); Absolute Monocyte Count 0.17 10^3/uL (0.1-0.8); Absolute Neutrophil Count 0.91 10^3/uL (1.2-6.7); Basophils % 0.6; Eosinophils % 1.8; HCT 26.7 % (36.0-46.0); HGB 9.4 g/dL (11.2-15.7); Lymphocytes % 32.9; MCH 37.8 pg (27.0-33.0); MCHC 35.2 % (32.0-36.0); MCV 107 fL (80-95); MPV 8.5 fL (8.0-11.0); Monocytes % 10.2; Neutrophils % 54.5; RBC 2.49 10^6/uL (3.93-5.22); RDW 15.1 % (11.7-14.6)
[2023-09-29 08:56] LABS: Platelet Count 60 10^3/uL (130-400); WBC 1.67 10^3/uL (4.4-10.8)
[2023-09-29 08:58] LABS: Diff Comment Diff Reviewed; Macrocytosis 2+
[2023-10-06 08:19] LABS: Absolute Eosinophil Count 0.03 10^3/uL (0.0-0.7); Absolute Lymphocyte Count 0.66 10^3/uL (1.2-3.4); Absolute Monocyte Count 0.12 10^3/uL (0.1-0.8); Absolute Neutrophil Count 0.83 10^3/uL (1.2-6.7); Eosinophils % 1.8; HGB 9.4 g/dL (11.2-15.7); Lymphocytes % 40.2; MCH 38.8 pg (27.0-33.0); MCHC 34.8 % (32.0-36.0); MCV 112 fL (80-95); MPV 9.6 fL (8.0-11.0); Monocytes % 7.3; Neutrophils % 50.7; RBC 2.42 10^6/uL (3.93-5.22); RDW 15.8 % (11.7-14.6)
[2023-10-06 08:32] LABS: Platelet Count 70 10^3/uL (130-400)
[2023-10-06 08:39] LABS: Diff Comment Diff Reviewed; RBC Morphology Normal; WBC 1.64 10^3/uL (4.4-10.8)
== END 2023-10-19 23:59 | disposition home or self-care (01) ==
LOC: INF 05:07
PROVIDERS: PCP Nurse Practitioner; Visit Provider Internal Medicine Hematology & Oncology
DX: D46.9 Myelodysplastic syndrome, unspecified (principal); C76.0 Malignant neoplasm of head, face and neck
CPT/HCPCS: 36415; 86850; 86900; 86901; 85025

== ENCOUNTER 2023-11-03 05:45 | Outpatient (RCR) | payer MEDICARE, SELFPAY ==
[2023-10-20 08:26] LABS: Absolute Eosinophil Count 0.02 10^3/uL (0.0-0.7); Absolute Lymphocyte Count 0.61 10^3/uL (1.2-3.4); Absolute Monocyte Count 0.13 10^3/uL (0.1-0.8); Absolute Neutrophil Count 0.77 10^3/uL (1.2-6.7); Eosinophils % 1.3; HCT 26.1 % (36.0-46.0); HGB 8.8 g/dL (11.2-15.7); Lymphocytes % 39.9; MCH 38.3 pg (27.0-33.0); MCHC 33.7 % (32.0-36.0); MCV 114 fL (80-95); Monocytes % 8.5; Neutrophils % 50.3; RDW-SD 66.7 fL
[2023-10-20 08:38] LABS: WBC 1.53 10^3/uL (4.4-10.8)
[2023-10-20 08:39] LABS: Diff Comment Diff Reviewed; Macrocytosis 2+; Platelet Count 60 10^3/uL (130-400)
[2023-11-03 08:31] LABS: Absolute Eosinophil Count 0.01 10^3/uL (0.0-0.7); Absolute Lymphocyte Count 0.52 10^3/uL (1.2-3.4); Absolute Monocyte Count 0.18 10^3/uL (0.1-0.8); Absolute Neutrophil Count 1.16 10^3/uL (1.2-6.7); Eosinophils % 0.5; HCT 25.1 % (36.0-46.0); HGB 8.6 g/dL (11.2-15.7); Lymphocytes % 27.8; MCH 38.6 pg (27.0-33.0); MCHC 34.3 % (32.0-36.0); MCV 113 fL (80-95); MPV 11.4 fL (8.0-11.0); Monocytes % 9.6; Neutrophils % 62.1; RBC 2.23 10^6/uL (3.93-5.22); RDW 15.4 % (11.7-14.6)
[2023-11-03 09:19] LABS: WBC 1.87 10^3/uL (4.4-10.8)
[2023-11-03 09:21] LABS: Diff Comment Diff Reviewed; Macrocytosis 1+
[2023-11-03 09:22] LABS: Platelet Count 63 10^3/uL (130-400)
== END 2023-11-18 23:59 | disposition home or self-care (01) ==
LOC: INF 05:45
PROVIDERS: PCP Nurse Practitioner; Visit Provider Internal Medicine Hematology & Oncology
DX: D46.9 Myelodysplastic syndrome, unspecified (principal)
CPT/HCPCS: 36415; 86850; 86900; 86901; 85025